=== PATIENT | female | born 1960 | race Caucasian/White ===

== ENCOUNTER 2021-11-08 17:34 | Emergency (ER) | payer BC, SELFPAY ==
[2021-11-08 17:37] VITALS: BP 137/75; PULSE 62; RESP 18; TEMP 36.9; O2SAT 98; BMI 21.4
[2021-11-08] MEDS: Acetaminophen 325 MG TABLET 650 MG PO (18:33)
[2021-11-08] MEDS: Lidocaine HCl 1 % MPF 2 ML VIAL INFILTRATI ×4 (20:01→20:02)
--- NOTE | 2021-11-08 20:18 | ED_ITS ---
HPI - Wound/Laceration General Chief Complaint: Wound/Laceration Stated Complaint: thumb lac Time Seen by Provider: 11/08/21 19:34 History of Present Illness HPI narrative: Patient complains of left thumb laceration after cutting it on a sharp object Related Data Allergies Allergy/AdvReac Type Severity Reaction Status Date / Time No Known Allergies Allergy Verified 11/08/21 18:30 Review of Systems Review of Systems: Positive for left thumb laceration Negatives are no numbness no weakness no tingling no joint pain no difficulty be nding or straightening the finger, no swelling, no other injury Yes all other systems are reviewed and are negative [facility] Social History Social History Advance Directives: No Advance Directives Information Provided: No Physical Exam Vital Signs: Vital Signs: Last Vital Signs Temp 98.4 F 11/08/21 17:37 Pulse 62 11/08/21 17:37 Resp 18 11/08/21 17:37 BP 137/75 11/08/21 17:37 Pulse Ox 98 11/08/21 17:37 O2 Del Method 11/08/21 17:37 BMI result Body Mass Index 21.4 General appearance no distress Head is normocephalic atraumatic Neck is supple Respiratory no distress Extremities full range of motion x4 Left thumb there is of laceration over the dorsal proximal phalanx approximately 1.5 cm, no impairment of extension or flexion, neurovascular intact distal Other extremities normal Neuro no focal motor sensory deficits Course Course Course Narrative: Left thumb laceration procedure note 1.5 cm laceration is cleansed and irrigated with normal saline Anesthesia was 6 cc 1% lidocaine digital block Closure was for 5.0 nylon sutures, bleeding controlled bandage applied Discharge Plan Discharge Clinical Impression: Laceration Patient Disposition: Home, Self-Care Additional Instructions: Stitches out 7 days Return any time for redness swelling any sign of infection You are probably up-to-date on her tetanus shot but best plan is check with primary doctor to confirm you with had a tetanus shot with in 5 years Interventions: ED Discharge Assessment Last Done: 11/08/21 20:37 Discharge Date/Time: 11/08/21 20:38
== END 2021-11-08 20:38 | disposition home or self-care (01) ==
PROVIDERS: Emergency Provider Internal Medicine; PCP Family Medicine
DX: S61.012A Laceration without foreign body of left thumb without damage to nail, initial encounter (principal); W26.9XXA Contact with unspecified sharp object(s), initial encounter; Y93.89 Activity, other specified; Y92.019 Unspecified place in single-family (private) house as the place of occurrence of the external cause; Y99.9 Unspecified external cause status
CPT/HCPCS: 12001; 99283; 99284